=== PATIENT | female | born 1980 | race Caucasian/White ===

== ENCOUNTER → 2020-09-05 11:44 | Outpatient (CLI) | payer OTHER, SELFPAY ==
--- NOTE | ~2020-09-05 | US_ITS ---
US axilla LT DATE: 09/05/2020 12:08 INDICATION: Palpable left axillary lump for 2 weeks. History of breast cancer and double mastectomy i n 2018 TECHNIQUE: High-resolution and color flow imaging of the left axillary soft tissues COMPARISON: None FINDINGS: At the area of clinical complaint of left axillary lung is a 2.9 x 6.4 x 4.1 mm circumscrib ed hypoechoic lesion with fatty hilus, most consistent with lymph node. The cortex appears uniform in thickness and echogenicity. No suspicious mass or shadowing is evident. IMPRESSION: Benign-appearing small left axillary lymph node BI-RADS Category 2: Benign Recommendation: If further evaluation is clinically indicated, consider PET/CT scan Reviewed, dictated and finalized at [facility]. Reviewed, dictated and finalized at [facility]. [facility] BUSINESS INFORMATION
== END ==
PROVIDERS: Visit Provider Nurse Practitioner
DX: R59.0 Localized enlarged lymph nodes (principal); Z85.3 Personal history of malignant neoplasm of breast
CPT/HCPCS: 76882